=== PATIENT | female | born 1985 | race Caucasian/White ===

== ENCOUNTER 2017-09-12 17:24 | Emergency (ER) | payer SELFPAY ==
[2017-09-12 17:27] VITALS: BMI 19.2
--- NOTE | 2017-09-12 18:30 | DR.GENAD ---
HPI - PCP Primary Care Physician: NFD - Complaint/Symptoms Chief Complaint Doctors Comments: patient admits to influenza like symptoms for four days associated with diarrhea w/o vomiting. Chief Complaint:: PATIENT HAS HAD A FEVER AND PAIN ALL OVER HER BODY. 3-4 DAYS OF CONSTANT FEVER. - Source History Provided: Patient - Mode of Arrival Mode of Arrival: Wheelchair - Timing Onset of Chief Complaint: 09/08/17 PMH - PMH Past Medical History: No Past Surgical History: Yes Surgical History: Tonsillectomy - Family History History of Family Medical Conditions: No - Social History Does patient currently use any type of tobacco product: Yes Have you used tobacco products in the last 12 months: Yes Type of Tobacco Use: Cigarettes Does any household member use tobacco: No Alcohol Use: None Do you use any recreational Drugs:: No Lives With: Family Lives Where: Home - infectious screening In the last 2 months have you had wt loss of >10#?: NO Have you had fever, night sweats or hemotysis?: No Have you traveled outside the country in the last 6 months?: No Isolation: Standard ROS - Review of Systems Eyes: No Symptoms Reported ENTM: No Symptoms Reported Respiratoy: No Symptoms Reported Cardiovascular: No Symptoms Reported Gastrointestinal/Abdominal: No Symptoms Reported Genitourinary: No Symptoms Reported Neurological: No Symptoms Reported Musculoskeletal: No Symptoms Reported Integumentary: No Symptoms Reported Hematologic/Lymphatic: No Symptoms Reported Endocrine: No Symptoms Reported Psychiatric: No Symptoms Reported All Other Systems: Reviewed and Negative PE - Vital Signs Vitals: Temperature 96.6 F Pulse Rate 110 Respiratory Rate 20 Blood Pressure [Left Arm] 97/65 Blood Pressure 116/66 O2 Sat by Pulse Oximetry 98 - General Limitations: No Limitations General Appearance: Alert, In No Apparent Distress - Head Head Exam: Normal Inspection, Atraumatic - Eyes Eye exam: Normal Appearance, PERRL, EOMI - ENT ENT Exam: Normal Exam External Ear Exam: Normal External Inspection TM/Canal Exam: Bilateral Normal Nose Exam: Normal Nose Exam, Sinus Tenderness Mouth Exam: Normal Inspection Throat Exam: Normal Inspection - Neck Neck Exam: Normal Inspection - Chest Chest Inspection: Normal Inspection - Respiratory Respiratory Exam: Normal Lung Sounds Bilat Respiratory Exam: Bilateral Clear to Auscultation - Cardiovascular Cardiovascular Exam: Regular Rate, Normal Rhythm - Abdominal Exam Abdominal Exam: Normal Inspection, Normal Bowel Sounds Abdominal Tenderness: negative: RUQ, RLQ, LUQ, LLQ, Epigastrium, Suprapubic, Diffuse, Mild, Moderate, Severe, Other - Extremities Extremities Exam: Normal Inspection - Back Back Exam: Normal Inspection, Full ROM - Neurologic Neurological Exam: Alert, Oriented X3, CN II-XII Intact - Psychiatric Psychiatric Exam: Normal Affect, Normal Mood - Skin Skin Exam: Warm, Dry, Intact Course - Reevaluation 1st: Improved ROR - Labs Reviewed Laboratory Results Reviewed?: Yes Result Diagrams: 09/12/17 18:45 09/12/17 21:30 Laboratory: WBC 16.8 X10^3/uL (3.6-10.0) H 09/12/17 18:45 RBC 4.35 X10^6/uL (3.5-5.4) 09/12/17 18:45 Hgb 12.5 g/dL (12.0-16.0) 09/12/17 18:45 Hct 35.6 % (36.0-47.0) L 09/12/17 18:45 MCV 81.9 fL (80.0-100.0) 09/12/17 18:45 MCH 28.8 pg (27.0-34.0) 09/12/17 18:45 MCHC 35.1 g/dL (33.0-35.0) H 09/12/17 18:45 RDW 13.2 % (11.6-16.5) 09/12/17 18:45 Plt Count 215 X10^3/uL (150.0-450.0) 09/12/17 18:45 MPV 7.7 fL (7.4-11.0) 09/12/17 18:45 Neut % 85.3 % (42.0-75.0) H 09/12/17 18:45 Lymph % 3.3 % (21.0-51.0) L 09/12/17 18:45 [place] % 11.1 % (0.0-13.0) 09/12/17 18:45 Eos % 0.1 % (0.9-2.9) L 09/12/17 18:45 Baso % 0.2 % (0.2-1.0) 09/12/17 18:45 Neut # 14.3 x10^3/uL (2.2-4.8) H 09/12/17 18:45 Lymph # 0.5 X10^3/uL (1.3-2.9) L 09/12/17 18:45 [place] # 1.9 x10^3/uL (0.3-0.8) H 09/12/17 18:45 Eos # 0.0 x10^3/uL (0.0-0.2) 09/12/17 18:45 Baso # 0.0 X10^3/uL (0.0-0.1) 09/12/17 18:45 Absolute Nucleated RBC 0.0 /100WBC 09/12/17 18:45 Sodium 131 mmol/L (136-145) L 09/12/17 21:30 Corrected Sodium 132 mmol/L (136-145) L 09/12/17 21:30 Potassium 4.1 mmol/L (3.5-5.1) 09/12/17 21:30 Chloride 100 mmol/L (98-107) 09/12/17 21:30 Carbon Dioxide 24.6 mmol/L (21-32) 09/12/17 21:30 BUN 22 mg/dL (7-18) H 09/12/17 21:30 Creatinine 1.30 mg/dL (0.55-1.02) H 09/12/17 21:30 Est GFR (MDRD) Af Amer > 60 (>60) 09/12/17 21:30 Est GFR (MDRD) Non-Af 50 (>60) L 09/12/17 21:30 Glucose 131 mg/dL (65-99) H 09/12/17 21:30 Calcium 8.2 mg/dL (8.5-10.1) L 09/12/17 21:30 Specimen Type Clean catch urine 09/12/17 19:24 Urine Color Yellow (YELLOW) 09/12/17 19:24 Urine Appearance Cloudy (CLEAR) 09/12/17 19:24 Urine pH 6.0 (5.0 - 8.0) 09/12/17 19:24 Ur Specific [place] 1.010 (1.000-1.030) 09/12/17 19:24 Urine Protein 4+ (NEGATIVE) 09/12/17 19:24 Urine Glucose (UA) Negative (NEGATIVE) 09/12/17 19:24 Urine Ketones 1+ (NEGATIVE) 09/12/17 19:24 Urine Occult Blood 3+ (NEGATIVE) 09/12/17 19:24 Urine Nitrite Negative (NEGATIVE) 09/12/17 19:24 Urine Bilirubin Negative (NEGATIVE) 09/12/17 19:24 Urine Urobilinogen 1+ (NORMAL) 09/12/17 19:24 Ur Leukocyte Esterase 3+ (NEGATIVE) 09/12/17 19:24 Urine RBC 03 - 06 /HPF (NEGATIVE) 09/12/17 19:24 Urine WBC Tntc with clumps /HPF (NEGATIVE) 09/12/17 19:24 Ur Squamous Epith Cells Many /HPF (NEGATIVE) 09/12/17 19:24 Amorphous Sediment 1+ /HPF (NEGATIVE) 09/12/17 19:24 Urine Bacteria 3+ /HPF (NEGATIVE) 09/12/17 19:24 Ur Culture Indicated? Yes/culture set up 09/12/17 19:24 Influenza Type A (PCR) Negative (NEGATIVE) 09/12/17 18:29 Influenza Type B (PCR) Negative (NEGATIVE) 09/12/17 18:29 - Diagnosis Discharge Problem: Dehydration, mild, Acute diarrhea, UTI (urinary tract infection) - Discharge Plan Condition: Stable - Follow ups/Referrals Follow ups/Referrals: NFD,None [Primary Care Provider] - 3 days - Instructions
[2017-09-12] MEDS ORDERED: TORADOL 30 MG VIAL IVP ONE (18:32)
[2017-09-12] MEDS ORDERED: TORADOL 30 MG VIAL ONE (18:39)
[2017-09-12 18:57] LABS: BASOPHILS % (AUTO) 0.2 % (0.2-1.0); EOSINOPHILS % (AUTO) 0.1 % (0.9-2.9); HEMATOCRIT 35.6 % (36.0-47.0); HEMOGLOBIN 12.5 g/dL (12.0-16.0); LYMPHOCYTES # (AUTO) 0.5 X10^3/uL (1.3-2.9); LYMPHOCYTES % (AUTO) 3.3 % (21.0-51.0); MEAN CORPUSCULAR HEMOGLOBIN 28.8 pg (27.0-34.0); MEAN CORPUSCULAR HGB CONC 35.1 g/dL (33.0-35.0); MEAN CORPUSCULAR VOLUME 81.9 fL (80.0-100.0); MEAN PLATELET VOLUME 7.7 fL (7.4-11.0); MONOCYTES # (AUTO) 1.9 x10^3/uL (0.3-0.8); MONOCYTES % (AUTO) 11.1 % (0.0-13.0); NEUTROPHILS # (AUTO) 14.3 x10^3/uL (2.2-4.8); NEUTROPHILS % (AUTO) 85.3 % (42.0-75.0); PLATELET COUNT 215 X10^3/uL (150.0-450.0); RED BLOOD COUNT 4.35 X10^6/uL (3.5-5.4); RED CELL DISTRIBUTION WIDTH 13.2 % (11.6-16.5); WHITE BLOOD COUNT 16.8 X10^3/uL (3.6-10.0)
[2017-09-12 18:59] LABS: CALCIUM 8.7 mg/dL (8.5-10.1); CARBON DIOXIDE 26.1 mmol/L (21-32); CREATININE 1.31 mg/dL (0.55-1.02)
[2017-09-12] MEDS ORDERED: NS 1000 ML 1,000 ML IV ONE (19:32)
[2017-09-12] MEDS ORDERED: NS 1000 ML 1,000 ML ONE (19:33)
[2017-09-12 20:00] LABS: BILIRUBIN,URINE NEGATIVE (NEGATIVE); BLOOD/HEMOGLOBIN,URINE 3+ (NEGATIVE); GLUCOSE, URINE NEGATIVE (NEGATIVE); KETONES,URINE 1+ (NEGATIVE); LEUKOCYTE ESTERASE ,URINE 3+ (NEGATIVE); NITRITES,URINE NEGATIVE (NEGATIVE); PROTEIN,URINE 4+ (NEGATIVE); UROBILINOGEN,URINE 1+ (NORMAL)
[2017-09-12 20:02] LABS: APPEARANCE,URINE CLOUDY (CLEAR); COLOR,URINE YELLOW (YELLOW)
[2017-09-12 20:13] LABS: AMORPHOUS SEDIMENT,UR 1+ /HPF (NEGATIVE); BACTERIA,URINE 3+ /HPF (NEGATIVE); SQUAMOUS EPITHELIAL CELL,UR MANY /HPF (NEGATIVE)
[2017-09-12] MEDS ORDERED: ROCEPHIN VIAL 1 GM 1 GM in NS 100 ML IV + SPIKE MINIBAG* 100 ML IV ONE (21:02)
[2017-09-12] MEDS ORDERED: NS 100 ML IV + SPIKE MINIBAG* 100 ML IV ONE (21:14)
[2017-09-12] MEDS ORDERED: ROCEPHIN VIAL 1 GM ONE (21:14)
[2017-09-12 21:58] LABS: CALCIUM 8.2 mg/dL (8.5-10.1); eGFR BLACK RACES > 60 (>60); eGFR NON BLACK RACES 50 (>60)
[2017-09-12 22:04] LABS: BLOOD UREA NITROGEN 22 mg/dL (7-18); CARBON DIOXIDE 24.6 mmol/L (21-32); CHLORIDE 100 mmol/L (98-107); COR NA(FOR HYPERGLY) 132 mmol/L (136-145); SODIUM 131 mmol/L (136-145)
[2017-09-12 22:37] VITALS: BP 109/58
== END 2017-09-12 22:37 | disposition home or self-care (01) ==
LOC: ER 18:10
DX: N39.0 Urinary tract infection, site not specified (principal); E86.0 Dehydration; R19.7 Diarrhea, unspecified
CPT/HCPCS: 36415; 80048; 81001; 85025; 87086; 87088; 87186; 87502; 96365; 96367; 96374; 96375; 99282; 99283; A4222; J0696; J1885

== ENCOUNTER 2018-07-27 07:30 | Inpatient (IN) ==
[~2018-07-27 07:30] MED LIST: ANCEF VIAL 1 GRAM ONE; D5 1/2 NS 1L W PITOCIN 20 UNITS/L 20 UNITS/1,000 ML BAG IV ONE; LR 1000 ML IV 1,000 ML IV ONE
[2018-08-05] MEDS ORDERED: D5 1/2 NS 1000 ML 1,000 ML IV SCH (10:44)
[2018-08-05] MEDS ORDERED: ANCEF VIAL 1 GRAM IVP ONE (10:44)
[2018-08-05] MEDS ORDERED: LR 1000 ML IV 1,000 ML IV ONE ×2 (10:48→12:20)
[2018-08-05] MEDS ORDERED: DILAUDID INJ ONE ×2 (11:50→13:22)
[2018-08-05] MEDS ORDERED: REGLAN INJ 10 MG VIAL IVP PRN ×2 (13:22→13:47)
[2018-08-05] MEDS ORDERED: BENADRYL INJ 50 MG VIAL IVP PRN ×2 (13:22→13:47)
[2018-08-05] MEDS ORDERED: PHENERGAN INJ 25 MG IVP PRN (13:22)
[2018-08-05] MEDS ORDERED: DILAUDID INJ IVP PRN (13:22)
[2018-08-05] MEDS ORDERED: ZOFRAN INJ 4 MG VIAL IVP PRN ×2 (13:22→13:47)
[2018-08-05] MEDS ORDERED: ADACEL or BOOSTRIX TDaP VACCINE IM ONE (13:47)
[2018-08-05] MEDS ORDERED: HYPERRHO S/D (or RHOGAM) IM PRN (13:47)
[2018-08-05] MEDS ORDERED: NARCAN INJ IVP PRN (13:47)
[2018-08-05] MEDS ORDERED: D5 1/2 NS 1000 ML 1,000 ML with PITOCIN 20 UNITS IV SCH ×2 (14:00)
[2018-08-05] MEDS ORDERED: MARCAINE SPINAL ONE (14:27)
[2018-08-05] MEDS ORDERED: EPHEDRINE SULFATE INJ ONE (14:27)
[2018-08-05] MEDS ORDERED: PITOCIN ONE (14:27)
[2018-08-05] MEDS ORDERED: VERSED ONE (14:27)
[2018-08-05] MEDS ORDERED: XYLOCAINE 1 % (PLAIN) ONE (14:27)
[2018-08-05] MEDS: TORADOL 30 MG VIAL IVP PRN ×2 (15:21→22:37)
[2018-08-05] MEDS: ZANTAC PO SCH (20:21)
[2018-08-06] MEDS: MYLICON TAB 80 MG CHEW PO PRN ×2 (02:54→11:28)
[2018-08-06] MEDS: TORADOL 30 MG VIAL IVP PRN (05:15)
[2018-08-06 06:38] LABS: HEMATOCRIT 28.2 % (36.0-47.0); HEMOGLOBIN 9.8 g/dL (12.0-16.0)
[2018-08-06] MEDS: ZANTAC PO SCH ×2 (09:03→20:19)
[2018-08-06] MEDS: PRENATAL PLUS PO SCH (09:03)
[2018-08-06] MEDS ORDERED: PERCOCET TAB 5/325 MG PO PRN (09:06)
[2018-08-06] MEDS: FERROUS GLUCONATE PO SCH (16:45)
[2018-08-06] MEDS: BACTROBAN CREAM TOP SCH ×2 (16:46→21:41)
[2018-08-06] MEDS: MOTRIN TAB 800 MG PO PRN (18:31)
[2018-08-06] MEDS: COLACE CAP 100 MG PO SCH (20:19)
[2018-08-07] MEDS: BACTROBAN CREAM TOP SCH (05:35)
[2018-08-07] MEDS: MOTRIN TAB 800 MG PO PRN (05:35)
[2018-08-07] MEDS: FERROUS GLUCONATE PO SCH (06:29)
[2018-08-07] MEDS ORDERED: DEPO-PROVERA CONTRACEPTIVE INJ IM ONE (08:20)
[2018-08-07] MEDS: PRENATAL PLUS PO SCH (09:42)
[2018-08-07] MEDS: ZANTAC PO SCH (09:42)
[2018-08-07] MEDS: COLACE CAP 100 MG PO SCH (09:43)
[2018-08-07 10:26] VITALS: BP 130/81
[2018-08-07] MEDS ORDERED: FLUVIRIN IM ONE ×2 (12:01→12:04)
[2018-08-07] MEDS ORDERED: ADACEL or BOOSTRIX TDaP VACCINE IM ONE (12:03)
== END 2018-08-07 11:55 | disposition home or self-care (01) | DRG 787 ==
LOC: LD 08-05 10:40 → MED/SURG 08-05 13:32
PROVIDERS: ADMIT Specialist; ATTEND Specialist
DX: O34.43 Maternal care for other abnormalities of cervix, third trimester; O13.3 Gestational [pregnancy-induced] hypertension without significant proteinuria, third trimester; O99.324 Drug use complicating childbirth; O99.613 Diseases of the digestive system complicating pregnancy, third trimester; Z23 Encounter for immunization; Z37.0 Single live birth; O09.513 Supervision of elderly primigravida, third trimester; Z3A.38 38 weeks gestation of pregnancy; O09.33 Supervision of pregnancy with insufficient antenatal care, third trimester; O36.0930 Maternal care for other rhesus isoimmunization, third trimester, not applicable or unspecified; Z86.19 Personal history of other infectious and parasitic diseases
CPT/HCPCS: 36415; 85014; 85018; 86850; 86900; 86901; 90686; 90715; A4216; A4222; S0197; J0690; J1050; J1170; J1885; J2250; J2590; J3490; J7120